=== PATIENT | male | born 1960 | race Caucasian/White ===

== ENCOUNTER 2022-05-02 04:06 | Inpatient (IN) | payer OTHER ==
[~2022-05-02] VITALS: Ht 167.6 cm; Wt 72.3 kg
--- NOTE | 2022-05-02 04:07 | NUR ---
PT BROUGHT TO BED 6 VIA [facility]
[2022-05-02 04:14] VITALS: BP 79/49
[2022-05-02] MEDS ORDERED: NACL 0.9% 1,000 ML IV ONE (04:20)
[2022-05-02] MEDS ORDERED: OCTREOTIDE ACETATE 1.25 MG in NACL 0.9% 250 ML IV SCH ×2 (04:20→05:50)
[2022-05-02] MEDS ORDERED: PANTOPRAZOLE 80 MG in NACL 0.9% 100 ML IVP SCH (04:20)
[2022-05-02] MEDS ORDERED: PANTOPRAZOLE 40 MG INJ VIAL ONE (04:24)
--- NOTE | 2022-05-02 04:30 | NUR ---
62 Y.O M BIBA FROM HOME WITH C/C OF VOMITING BLOOD X2 HRS. PER EMS PT FELL OUT OF BED, LAC TO LEFT EYEBROW. PT IS HYPOTENSIVE AT 77/38. PT PRESENTS WITH LEFT AC18G TO LEFT AC RECIEVED ABOUT 400CC. HX:VANCE LEWIS
[2022-05-02] MEDS ORDERED: OCTREOTIDE ACETATE 1000 MCG/5 ML VIAL ONE (04:38)
[2022-05-02 05:16] LABS: BASOPHILS # (AUTO) 0.1 K/uL (0.00-0.22); BASOPHILS % (AUTO) 0.5 % (0.0-2.0); EOSINOPHILS # (AUTO) 0.3 K/uL (0-0.4); EOSINOPHILS % (AUTO) 3.2 % (0.0-4.0); HEMATOCRIT 24.4 % (36-52); HEMOGLOBIN 7.8 g/dL (12.0-18.0); LYMPHOCYTES # (AUTO) 4.5 K/uL (2.0-11.5); LYMPHOCYTES % (AUTO) 47.8 % (20.5-51.1); MEAN CORPUSCULAR HEMOGLOBIN 26 pg (27-31); MEAN CORPUSCULAR HGB CONC 32 g/dL (33-37); MEAN CORPUSCULAR VOLUME 81.3 fL (80-94); MONOCYTES # (AUTO) 0.5 K/uL (0.8-1.0); MONOCYTES % (AUTO) 5.3 % (1.7-9.3); NEUTROPHILS # (AUTO) 4.1 K/uL (1.8-7.7); NEUTROPHILS % (AUTO) 43.2 % (42.2-75.2); PLATELET COUNT (AUTO) 138 K/uL (140-450); RED CELL DISTRIBUTION WIDTH 16.4 % (11.6-13.7); WHITE BLOOD COUNT (AUTO) 9.5 K/uL (4.8-10.8)
[2022-05-02 05:26] LABS: ALBUMIN 1.9 g/dL (3.4-5.0); ANION GAP 14.6 (8-16); CARBON DIOXIDE 21.8 mmol/L (21-32); POTASSIUM 3.4 mmol/L (3.5-5.1); TOTAL BILIRUBIN 0.4 mg/dL (0.0-1.0)
[2022-05-02] MEDS ORDERED: LIDOCAINE MPF 1% 5 ML ONE ×2 (05:26→05:28)
--- NOTE | 2022-05-02 05:30 | NUR ---
BLOOD RECEIVED FROM [facility]. BLOOD TRANSFUSION PAPERS NOT FILLED OUT COMPLETELY. [facility] STATED THAT SHE WOULD FILL PAPERS OUT LATER. LAB TRANSFUSION PAPER FOR SECOND UNIT OF BLOOD WAS NEVER GIVEN.
[2022-05-02] MEDS ORDERED: NOREPINEPHRINE 8 MG in DEXTROSE 5% 250 ML IV PRN (05:55)
[2022-05-02] MEDS ORDERED: NOREPINEPHRINE 4 MG/4 ML VIAL IV ONE ×2 (05:58→05:59)
[2022-05-02] MEDS ORDERED: ONDANSETRON 4 MG/2 ML VIAL IVP ONE (06:20)
[2022-05-02] MEDS ORDERED: ONDANSETRON 4 MG/2 ML VIAL ONE (06:22)
--- NOTE | 2022-05-02 06:29 | NUR ---
PT VOMITED 400CC OF BLOOD.
[2022-05-02] MEDS ORDERED: INSU100I7 SQ (06:32)
[2022-05-02] MEDS ORDERED: GLIP10TA12 PO (06:32)
[2022-05-02] MEDS ORDERED: TRANEXAMIC ACID 1,000 MG in NACL 0.9% 50 ML IV STA (06:34)
[2022-05-02] MEDS ORDERED: TRANEXAMIC ACID 1,000 MG/10 ML VIAL ONE (06:44)
[2022-05-02] MEDS ORDERED: ACETAMINOPHEN 325 MG TAB PO PRN (07:05)
[2022-05-02] MEDS ORDERED: ZOLPIDEM 10 MG TAB PO PRN (07:05)
[2022-05-02] MEDS ORDERED: ONDANSETRON 4 MG/2 ML VIAL IVP PRN (07:05)
[2022-05-02] MEDS ORDERED: MORPHINE SULFATE 2 MG/ML SYR IVP PRN (07:05)
[2022-05-02] MEDS ORDERED: INSULIN LISPRO SLIDING SCALE 100 UNITS/ML VIAL SUBQ PRN (07:05)
[2022-05-02] MEDS ORDERED: POTASSIUM CHLORIDE 10 MEQ TABER PO PRN (07:05)
[2022-05-02] MEDS ORDERED: MAG SULF 2000 MG/WATER PREMIX 50 ML IV PRN (07:05)
[2022-05-02] MEDS ORDERED: DOCUSATE SODIUM 100 MG GELCAP PO PRN (07:05)
[2022-05-02] MEDS ORDERED: LORazepam 2 MG/ML VIAL IVP PRN (07:05)
[2022-05-02] MEDS ORDERED: DEXTROSE 50% 50 ML SYR IVP PRN (07:05)
--- NOTE | 2022-05-02 07:10 | NUR ---
PER DR KAY VERBAL ORDER, INSERT NG TUBE
--- NOTE | 2022-05-02 07:15 | NUR ---
NG TUBE INSERTED TO LEFT NARE. PENDING NG TUBE XR VERIFICATION. ENDORSED TO RESTAURANT LEAD DURING BEDSIDE REPORT. NO DRAINAGE NOTED.
[2022-05-02 07:20] VITALS: BP 66/45
--- NOTE | 2022-05-02 07:20 | NUR ---
Patient will be admitted to care of . Admited to ICU. Will go to room ICU2. Belongings list completed. Report to ALLA CENTENO.
--- NOTE | 2022-05-02 07:20 | NUR ---
REPORT GIVEN TO ALLA JAVIER. TRANSFER OF CARE.
[2022-05-02] MEDS ORDERED: BLOOD GLUCOSE MONITORING 1 DEV DEV FS SCH (07:30)
--- NOTE | 2022-05-02 07:55 | NUR ---
AT 0734 JESU FELIZ WAS CALLED. WHEN RT ARRIVED COMPRESSIONS WERE ALREADY STARTED. DR. CARMEN INTUBATED WITH 7.5 ETT AT 24 AT THE TEETH. AT 0750 TIME OF WAS CALLED.
--- NOTE | 2022-05-02 07:57 | NUR ---
0725- PT ARRIVED FROM ED TO ICU BED 2. 0731- PT PLACED ON BEDSIDE WINDOWS ADMINISTRATOR, BRADYCARDIA NOTED. PT UNRESPONSIVE TO PAINFUL STIMULI. NO CAROTID OR FEMORAL PULSE PALPABLE, NO FEMORAL PULSE PRESENT VIA DOPPLER. 0734- COMPRESSIONS STARTED, CODE BLUE CALLED.
--- NOTE | 2022-05-02 07:58 | NUR ---
TIME OF PRONOUNCED AT [address] ELLIOTT.
--- NOTE | 2022-05-02 08:30 | NUR ---
DR CHARLES ROUNDPADMINI IN UNIT. NOTIFIED OF PT .
--- NOTE | 2022-05-02 08:38 | NUR ---
CALL TO [facility], SPOKE WITH DIRECTOR OF [employer]COLLEGIATE [employer]THLET[employer] IRASEMA. PT IS ELIGIBLE FOR DONATION AT THIS TIME. [facility] WILL CALL BACK TO CHECK STATUS OF PT. REFERENCE # [id number].
--- NOTE | 2022-05-02 09:00 | NUR ---
CALL TO [facility]. SPOKE WITH PROVER THI. CHUTE GREASER TO CALL BACK AND OBTAIN ADDITIONAL INFORMATION.
--- NOTE | 2022-05-02 09:20 | NUR ---
[facility] RELEASED BODY. SPOKE WITH ANNA MARIE FENG WHO RELEASED BODY FOR MORTUARY DIRECTOR OF CATEGORY MANAGEMENT.
--- NOTE | 2022-05-02 11:15 | NUR ---
[facility] CONTACTED FOR PT PICKUP, THEY WILL CALL BACK WITH COMPOSITE ASSEMBLER TIME.
[2022-05-02] MEDS ORDERED: DEXTROSE 5% IV SCH (14:30)
[2022-05-02] MEDS ORDERED: PANTOPRAZOLE IV SCH (14:30)
== END 2022-05-02 14:10 | DRG 377 ==
LOC: MED 04:06 → MIC 07:21
PROVIDERS: ADMIT Family Medicine; ATTEND Family Medicine
PROC: 5A12012 Performance of Cardiac Output, Single, Manual (ICD-10-PCS; principal; 2022-05-02)
PROC: 0BH17EZ Insertion of Endotracheal Airway into Trachea, Via Natural or Artificial Opening (ICD-10-PCS; 2022-05-02)
PROC: 30233K1 Transfusion of Nonautologous Frozen Plasma into Peripheral Vein, Percutaneous Approach (ICD-10-PCS; 2022-05-02)
PROC: 30233N1 Transfusion of Nonautologous Red Blood Cells into Peripheral Vein, Percutaneous Approach (ICD-10-PCS; 2022-05-02)
PROC: 05H633Z Insertion of Infusion Device into Left Subclavian Vein, Percutaneous Approach (ICD-10-PCS; 2022-05-02)
DX: K92.2 Gastrointestinal hemorrhage, unspecified (principal); E43 Unspecified severe protein-calorie malnutrition; R65.11 Systemic inflammatory response syndrome (SIRS) of non-infectious origin with acute organ dysfunction; I46.9 Cardiac arrest, cause unspecified; E11.9 Type 2 diabetes mellitus without complications; Z68.25 Body mass index [BMI] 25.0-25.9, adult
CPT/HCPCS: 31500; 36415; 71045; 80053; 83605; 83690; 85025; 86886; 86900; 86901; 86920; 87040; 92950; 96361; 96365; 96366; 96375; 99285; C9113; J2001; J2354; J2405; J3490; J7030; J7060; Q0092